=== PATIENT | female | born 1965 | race African-American/Black ===

== ENCOUNTER 2018-11-04 14:20 | Inpatient (IN) | payer BC ==
[~2018-11-04] VITALS: Ht 152.4 cm; Wt 99.8 kg
[~2018-11-04 14:20] MED LIST: COLACE100 MG PO; CYMBALTA60 MG PO; DESYREL50 MG PO; FOLIC ACID0.4 MG PO; HYDROCHLOROTHIA25 M2 PO; HYDROXYCHLOROQ200 M1 PO; IBUPROFEN 600600 M1 PO; IRON325 PO; LYRICA 50 MG50 MG PO; MULTIVITAMINS; NORCO 5-325 TA1 EACH PO; NORVASC 5 MG TAB5 MG PO; PERCOCET 5-3251 EACH PO; REMERON15 MG PO; TOPROL XL50 MG PO; Trazodone PO; VITAMINC500 PO; XANAX PO
[2018-11-04] MEDS ORDERED: TYLENOL325 MG PO (17:17)
[2018-11-04] MEDS ORDERED: ALBUTEROL2.5 MG/31 INH (17:18)
[2018-11-04] MEDS ORDERED: HEPARIN 1,1000 UNIT/ (17:19)
[2018-11-04] MEDS ORDERED: ONDANSETRON HCL4 M2 PO (17:19)
[2018-11-04] MEDS ORDERED: BENTYL 20 MG TA20 M1 PO (17:20)
[2018-11-04] MEDS ORDERED: CYMBALTA60 MG PO (17:21)
[2018-11-04] MEDS ORDERED: CEFTRIAXONE2 G1 IVPB (17:23)
[2018-11-04 17:27] VITALS: BP 153/79
[2018-11-04 19:05] LABS: ABSOLUTE NEUTROPHILS 9.1 thou/uL (1.4-8.2); BASOPHILS 0.2 % (0.0-2.0); HEMATOCRIT 30.6 % (37.0-47.0); HEMOGLOBIN 10.4 gm/dL (12.0-15.0); MONOCYTES 4.8 % (1.0-8.0); PLATELET COUNT 343 thou/uL (150-400); RBC 3.36 mil/uL (4.20-5.00); RDW 14.3 % (10.5-14.5); WBC 10.5 thou/uL (4.0-11.0)
[2018-11-04 19:16] VITALS: BP 153/100
--- NOTE | 2018-11-04 19:38 | NUR ---
MARIA DIRECT ADMIT FROM [facility], LICHA CAME TO ROOM 457, WAS MOVED TO 454. BLOOD CULUTRE WAS DONE, REPORT GIVEN TO NIGHT NURSE. WILL CONTINUE TO ASSESS AND ASSIST WITH ADLs NEEDED.
[2018-11-05 03:23] VITALS: BP 152/78
[2018-11-05 05:53] LABS: ABSOLUTE NEUTROPHILS 8.4 thou/uL (1.4-8.2); BASOPHILS 0.3 % (0.0-2.0); HEMATOCRIT 30.6 % (37.0-47.0); HEMOGLOBIN 10.1 gm/dL (12.0-15.0); LYMPHOCYTES 9.5 % (24.0-44.0); MCH 30.5 pg (26.0-34.0); MCHC 33.1 g/dL (28.0-37.0); MCV 92.3 fL (80.0-100.0); MONOCYTES 3.1 % (1.0-8.0); PLATELET COUNT 362 thou/uL (150-400); POLYS 87.1 % (36.0-66.0); RBC 3.32 mil/uL (4.20-5.00); RDW 14.4 % (10.5-14.5); WBC 9.6 thou/uL (4.0-11.0)
[2018-11-05 05:58] LABS: CREATININE 1.1 mg/dL (0.6-1.0); MAGNESIUM 2.2 mg/dL (1.8-2.4); POTASSIUM 4.2 mmol/L (3.5-5.1)
[2018-11-05 07:45] VITALS: BP 174/99
--- NOTE | 2018-11-05 08:24 | NUR ---
PROGRESS PT A/O X 4 UP AD CELENA VOIDING QS, LUNGS COARSE WITH A STRONG NON PRODUCTIVE COUGH, REPORTS NON CARDIAC CHEST PAIN FROM COUGHING HYDROCODONE GIVEN WITH EFFECT PT RESTING, IV ANTIBIOTICS CONTINUE, ORDER TO OB[facility] LABS [facility] ENTERED CONTINUE POC.
--- NOTE | 2018-11-05 11:14 | 2DMMODE ---
[facility] [address] [place] [address] 2 D/M-MODE ECHOCARDIOGRAM Name[facility] 454-P ADM IN M.R.#: [id number] ������������� Admission: 11/04/18 ������������� Attend Phys: Ramiro Moon MD Discharge: ��� ������������� ��� Date of : 63 Date of Service: 11/05/18 1114 �� Report #: [id number] �������� ��������������������������������������������[id number] THIS REPORT FOR: //name// APPROVED REPORT Study performed: 11/05/2018 10:17:46 EXAM: Comprehensive 2D, Doppler, and color-flow Echocardiogram Patient Location: Bedside Room #: 454 Status: routine BSA: 2.15 HR: 89 bpm BP: 174/99 mmHg Rhythm: NSR Other Information Study Quality: Good Indications Dyspnea Hx: HTN, tobacco abuse. 2D Dimensions RVDd: 30.04 mm IVSd: 10.89 (7-11mm) LVOT Diam: 21.08 (18-24mm) LVDd: 46.82 mm PWd: 9.46 (7-11mm) Ascending Ao: 31.40 (22-36mm) LVDs: 24.81 (25-40mm) Aortic Root: 30.15 mm Volumes Left Atrial Volume (Systole) Single Plane 4CH: 41.94 mL Single Plane 2CH: 55.39 mL LA ESV Index: 23.00 mL/m2 Aortic Valve AoV Peak Ben.: 1.78 m/s AO Peak Gr.: 12.74 mmHg LVOT Max P.34 mmHg LVOT Max V: 1.35 m/s PERICO Vmax: 2.65 cm2 Mitral Valve E/A Ratio: 1.3 MV Decel. Time: 132.78 ms [facility] [address] [place] [address] 2 D/M-MODE ECHOCARDIOGRAM Name: DARYL CÁRDENAS Room #: 454-P [facility] IN .R.#: [id number] ������������� Admission: 11/04/18 ������������� Attend Phys: Ramiro Moon MD Discharge: ��� ������������� ��� Date of : 63 Date of Service: 11/05/18 1114 �� Report #: [id number] �������� ��������������������������������������������[id number] MV E Max Ben.: 1.26 m/s MV A Ben.: 0.96 m/s MV PHT: 38.51 ms IVRT: 57.67 ms Pulmonary Valve PV Peak Ben.: 1.03 m/s PV Peak Gr.: 4.27 mmHg Pulmonary Vein P Vein S: 1.03 m/s P Vein A: 0.35 m/s P Vein D: 0.70 m/s P Vein A Dur.: 110.7 msec P Vein S/D Ratio: 1.47 Tricuspid Valve TR Peak Ben.: 2.93 m/s RAP Estimate: 5.00 mmHg TR Peak Gr.: 34.34 mmHg PA Pressure: 39.00 mmHg Left Ventricle The left ventricle is normal size. There is normal LV segmental wall motion. There is normal left ventricular wall thickness. Left ventricular systolic function is normal. LVEF is 65%. Right Ventricle The right ventricle is normal size. The right ventricular systolic function is normal. Atria Left atrium is normal. Right atrium size is normal. Aortic Valve The aortic valve is normal in structure. Mild to moderate aortic regurgitation. There is no aortic valvular stenosis. Mitral Valve The mitral valve is normal in structure. Trace to mild mitral regurgitation. Tricuspid Valve The tricuspid valve is normal in structure. Mild tricuspid regurgitation. Estimated PAP is 40mmHg. Pulmonic Valve Pulmonic valve is grossly normal in structure[place] [address] 2 D/M-MODE ECHOCARDIOGRAM Name: DARYL CÁRDENAS [facility] #: 454-P [facility] IN M.R.#: [id number] ������������� Admission: 11/04/18 ������������� Attend Phys: Ramiro Moon MD Discharge: ��� ������������� ��� Date of : 63 Date of Service: 11/05/18 1114 �� Report #: [id number] �������� ��������������������������������������������[id number] The aortic root is normal in size. The ascending aorta is normal in size. IVC is normal in size and collapses >50% with inspiration. Pericardium There is no pericardial effusion. <Conclusion> The left ventricle is normal size. LVEF is 65%. Left atrium is normal. Right atrium size is normal. The aortic valve is normal in structure. Mild to moderate aortic regurgitation. The mitral valve is normal in structure. Trace to mild mitral regurgitation. The tricuspid valve is normal in structure. Mild tricuspid regurgitation. Estimated PAP is 40mmHg. Pulmonic valve is grossly normal in structure. There is no pericardial effusion. ��������������������������������������������� <ELECTRONICALLY SIGNED> ���������������������������������������� By: Wallace Mo MD ��������������������������������������������� 11/05/18 1114 1114 1114 Wallace Mo MD /INF
--- NOTE | 2018-11-05 12:06 | NUR ---
PT ADMITTED RELATED TO CAP. CM REVIEWED CHART AND SPOKE WITH CARE TEAM. CM MET WITH PT AT BEDSIDE THIS DAY. PT IS A&O X4. CM ROLE INTRODUCED. PT INDICATED SHE LIVES IN A HOOUSE WITH WITH HER SPOUSE AND CHILD. PT INDICATED THERE ARE 4 STEPS TO ENTER AND 12 STEPS TO FINISHED BASEMENT. 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 PT INDICATED NO DME OR HH HX. PT INDICATED HE PCP IS DR. VARGAS. PT INDICATED SHE PLANS TO RETURN HOME ONCE MEDICALLY STABLE. CARE TEAM INDICATED PT WILL LIKELY DC HOME TOMORROW WITH NO NEEDS. CM TO FOLLOW SHOULD ANY NEEDS ARISE.
[2018-11-05 13:38] LABS: % SATURATION 44 % (20-39); IRON 111 ug/dL (50-170); TIBC 251 ug/dL (250-450)
[2018-11-05 13:40] LABS: ALBUMIN 2.9 g/dL (3.4-5.0); DIRECT BILIRUBIN < 0.1 mg/dL (<0.1-0.3); SGOT 22 U/L (15-37); SGPT 24 U/L (30-65); TOTAL BILIRUBIN 0.1 mg/dL (<0.1-1.0); TOTAL PROTEIN 7.3 g/dL (6.4-8.2)
--- NOTE | 2018-11-05 14:01 | HC ---
[facility] [place] [address] CONSULTATION Name: DARYL CÁRDENAS Room #: 454-P ADM IN M.R.#: [id number] Admission: 11/04/18 ������������������ Attend Phys: Ramiro Moon MD Discharge: ������������������ Date of : 63 Report #: [id number] THIS REPORT FOR: //name// CC: Katya Moon DATE OF SERVICE: 11/04/2018 INFECTIOUS DISEASE CONSULTATION REASON FOR CONSULTATION: I was asked to evaluate concerning pneumonia. 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 She had maximum temperature up to 102 degrees at the time of admission. Viral respiratory panel revealed metapneumovirus. Treated with Solu-Medrol, azithromycin, and ceftriaxone. Fever has broken, but continues cough, congestion and dyspnea. Oxygen saturations have been normal on room air. She has had mild right pleuritic chest pain. Cough with minimal sputum production and no hemoptysis. Sinus congestion and clear sinus drainage. Mild nausea with steroids. No abdominal pain or diarrhea. No dysuria or frequency. No blood in her stool or urine. Her fibromyalgia symptoms have increased. No arthritis. No bleeding issues. The patient has had no travel. No HIV risk factors. She is immigrant from [place] 30 years ago. PPDs have been negative. REVIEW OF SYSTEMS: A 10-point review of systems is negative other than what is described above. ALLERGIES: LISINOPRIL, HYDROCHLOROTHIAZIDE. MEDICATIONS: As noted on her MAR, which were reviewed including azithromycin and ceftriaxone. PAST MEDICAL HISTORY: Lupus, anemia, TTP, hypertension, anxiety, fibromyalgia, and hysterectomy. FAMILY HISTORY: Noncontributory. SOCIAL HISTORY: Smoker of cigarettes. No significant alcohol intake. PHYSICAL EXAMINATION: [facility] [address] [place] [address] CONSULTATION Name: DARYL CÁRDENAS Room #: [address] [place] [address] IN M.R.#: [id number] Admission: 11/04/18 ������������������ Attend Phys: Ramiro Moon MD Discharge: ������������������ Date of : 63 Report #: [id number] VITAL SIGNS: Afebrile and hemodynamically stable. GENERAL: She is alert and cooperative and pleasant. Has a loose nonproductive cough. SKIN: Without rash. HEENT: She had mild periorbital swelling on the right. No palpable adenopathy. Eyes, without scleral icterus. Mouth without mucositis. NECK: Supple, with no thyromegaly or mass. LUNGS: Coarse breath sounds in the right upper posterior chest. No consolidation. HEART: Regular, without murmur, gallop, or rub. ABDOMEN: Soft, nontender, no hepatosplenomegaly or mass. EXTREMITIES: Without clubbing, cyanosis, or edema. GENITORECTAL: Not performed. No CVA tenderness and no spinal tenderness. Cranial nerves intact with strength in upper and lower extremities normal. Sensation intact upper and lower extremities. Mood normal. LABORATORY STUDIES: Reviewed. Outside records reviewed. I did not see any positive blood cultures or sputum culture. These laboratory will be called for again. Viral respiratory panel was positive for metapneumovirus. Initially had a creatinine of 1.3, now down to 0.7. No thrombocytopenia. Mild anemia. Chest x-ray with right upper lobe pulmonary infiltrate. IMPRESSION: A 52-year-old with underlying history of lupus, thrombotic thrombocytopenic purpura, and tobacco user; presents now with community-acquired pneumonia, right upper lobe, evidence of metapneumovirus. Still possible she has secondary bacterial infection. RECOMMENDATIONS: We will continue her current antibiotic therapy. Await microbiology reports updated from [facility]. Follow up chest x-ray today. May need further evaluation pending these studies. We will see how she does overnight. ��������������������������������������������� <ELECTRONICALLY SIGNED> ���������������������������������������� By: Panda Bustamante MD ��������������������������������������������� 11/05/18 1401 06 0316 Panda Bustamante MD /nt
[2018-11-05 15:00] VITALS: BP 187/100
[2018-11-05] MEDS ORDERED: COZAAR 25 MG TA25 M1 PO (15:06)
--- NOTE | 2018-11-05 17:00 | NUR ---
Assumed pt care this am, pt is up at villa with a steady gait. lungs are dimished with productive cough. Pt complained of chest pain in the am, EKG done findings were normal. Pain medication given with partial relief. anti anxiety medication given by Dr. Anderson, helped relax the pt. Labs / diagnostics ordered, poc followed. No other signs of distress have been noted nor verbalized. Pt preferes to have methyl salicilate/ menthol cream to be rubbed on her chest and expresses relief. POC followed, no verbalization nor signs of distress have been noted.
[2018-11-05 23:56] VITALS: BP 205/111
[2018-11-06 01:54] VITALS: BP 178/93
[2018-11-06 08:00] VITALS: BP 143/86; BP 215/100
--- NOTE | 2018-11-06 08:57 | NUR ---
progress pt a/o x4 bp high rechecked after meds and had improved pt states no s/s of headache or cardiac type chest pain, has muscular chest pain from coughing using bengay cream and hydrocodone with some effect up ad villa voiding qs, rt tx's and iv ants and steroids continue. lungs coarse throughout and cough is becoming more productive. pt is anxious but denied need for ativan still questioning why we gave her ativan instead of her home dose of xanax I explained that ativan is able to be given iv or po and that may be why it was ordered in place of xanax. continue to monitor
[2018-11-06] MEDS ORDERED: CEFDINIR300 MG PO (09:27)
[2018-11-06] MEDS ORDERED: HYDROCODON-ACE1 EAC7 PO (09:27)
[2018-11-06] MEDS ORDERED: PROTONIX40 M1 PO (09:28)
[2018-11-06] MEDS ORDERED: PREDNISONE 20 M20 MG PO (09:29)
[2018-11-06] MEDS ORDERED: ROBITUSSIN30 MG/5 ML PO (09:30)
--- NOTE | 2018-11-06 09:32 | EKG ---
[address] [facility] [place] [address] ELECTROCARDIOGRAM REPORT Name: DARYL CÁRDENAS Room #: 454- ADM IN M.R.#: [id number] ������������������ Admission: 11/04/18 ������������������ Attend Phys: Ramiro Moon MD Discharge: ������������������ Date of : 63 Report #: [id number] ����������������������������������������������������������������� [id number] THIS REPORT FOR: //name// [facility] Test Date: 2018-11-05 Test Time: 09:39:11 Pat Name: DARYL CÁRDENAS Department: Room: 454 Gender: F Remote Coders: ISAEL : 1965 Requested By: Yonathan Anderson Order Number: [id number] MD: Atul Dang Measurements Intervals [place] Rate: 69 P: 56 TN: 151 QRS: 25 QRSD: 92 T: -2 QT: 411 QTc: 441 Interpretive Statements Sinus rhythm Normal tracing No previous ECG available for comparison Electronically Signed On 11-06-2018 9:32:04 CDT by Atul Dang [email or web address] ��������������������������������������������� <ELECTRONICALLY SIGNED> ���������������������������������������� By: Atul Dang MD, [facility] ��������������������������������������������� 11/06/18 0932 0939 8 Atul Dang MD, FACC /EPI
[2018-11-06 11:06] VITALS: BP 215/100
--- NOTE | 2018-11-06 13:14 | NUR ---
PATIENT STATES FEELING BETTER TODAY. LUNGS STILL COARSE WITH WHEEZING IN THE BASES. O2 SAT 100% ON ROOM AIR. NON PRODUCTIVE COUGH NOTED. UP INDEPENDENTLY WITH STEADY GAIT. STATES READY TO BE DISCHARGED. DISCHARGE INSTRUCTIONS GIVEN. DISMISSED IN STABLE CONDITION.
== END 2018-11-06 11:20 | disposition home or self-care (01) | DRG 194 ==
LOC: 4W 14:20
PROVIDERS: Nurse Practitioner; ADMIT Hospitalist
PROC: 05HY33Z Insertion of Infusion Device into Upper Vein, Percutaneous Approach (ICD-10-PCS; principal; 2018-11-06)
DX: J12.89 Other viral pneumonia (principal); N17.9 Acute kidney failure, unspecified; I10 Essential (primary) hypertension; F41.9 Anxiety disorder, unspecified; F17.210 Nicotine dependence, cigarettes, uncomplicated; E87.6 Hypokalemia; D64.9 Anemia, unspecified; M32.9 Systemic lupus erythematosus, unspecified; I35.1 Nonrheumatic aortic (valve) insufficiency; M79.7 Fibromyalgia; J40 Bronchitis, not specified as acute or chronic; K21.9 Gastro-esophageal reflux disease without esophagitis; Z88.8 Allergy status to other drugs, medicaments and biological substances; Z90.710 Acquired absence of both cervix and uterus; Z71.6 Tobacco abuse counseling; Z79.899 Other long term (current) drug therapy
CPT/HCPCS: 10047